=== PATIENT | male | born 1970 | race Caucasian/White ===

== ENCOUNTER 2021-07-11 07:21 | Outpatient (CLI) | payer OTHER, SELFPAY ==
--- NOTE | ~2021-07-11 | DEXA_ITS ---
Bone Density Report Name: PHILLIP HERNANDEZ Age: 51 Sex: Male Ethnicity: White Date of : 1970 Indication: height loss; prior fracture; Referring Provider: NIKKO KIM Study: Bone densitometry was performed. Exam Date: July 11, 2021 Accession number: [id number] Bone Density: Region BMD T-score Z-score Classification AP Spine (L2, L3, L4) 0.936 -1.6 -1.2 Osteopenia Femoral Neck (Left) 0.660 -2.0 -1.2 Osteopenia Total Hip (Left) 0.849 -1.2 -0.9 Osteopenia Total Hip Bilateral Avg 0.838 -1.3 -0.9 Osteopenia Femoral Neck (Right) 0.700 -1.7 -0.9 Osteopenia Total Hip (Right) 0.826 -1.4 -1.0 Osteopenia World Health Organization criteria for BMD impression classify patients as: Normal (T-score at or above -1.0), Osteopenia (T-score between -1.0 and -2.5), or Osteoporosis (T-score at or below -2.5). 10-year Fracture Risk(1): Major Osteoporotic Fracture 9.5% Hip Fracture 1.7% Reported Risk Factors: [place] (), Neck BMD=0.660, BMI=31.0, previous fracture (1) FRAX(R) Version 3.08. Fracture probability calculated for an untreated patient. Fracture probability may be lower if the patient has received treatment. Clinical Information Provided by Patient: Has had a low trauma fracture Patient maximum height was 71 No regular weight bearing exercise Does not regularly consume dairy products Drinks caffeinated beverages Impression: The patient has low bone mass, based on the Left Femoral Neck T-score. The patient has an estimated ten-year risk of hip fracture of 1.7% and an estimated ten-year risk of major fracture of 9.5%, based on the WHO FRAX algorithm. The patient has risk factors, including: previous fracture. Discussion: BONE DENSITY IS LOW AT ONE OR MORE SKELETAL SITES. This patient's lowest T-score is low at one or more skeletal sites. It meets the World Health Organization's (WHO) criteria for ?low bone mass? (T-score between -1.0 and -2.5). The patient's 10-year risk of fracture as calculated by FRAX is less than the threshold where pharmacological therapy is recommended by the National Osteoporosis Foundation (NOF). However, all treatment decisions require clinical judgment and consideration of individual patient factors, including patient preferences, comorbidities, previous drug use, risk factors not captured in the FRAX model (e.g., frailty, falls, vitamin D deficiency, increased bone turnover, interval significant decline in bone density) and possible under or overestimation of fracture risk by FRAX. The patient should follow a healthful lifestyle (good nutrition with adequate calcium and vitamin D, and appropriate weight-bearing exercise). Follow-Up: Consider repeating this study in 2 to 3 years to reassess this patient's status, or sooner if there is some new clinical indication.
== END 2021-07-11 07:22 | disposition home or self-care (01) ==
LOC: ANHIMG 07:25
PROVIDERS: PCP Family Medicine; Visit Provider Family Medicine
DX: M85.88 Other specified disorders of bone density and structure, other site (principal); M85.852 Other specified disorders of bone density and structure, left thigh; M85.851 Other specified disorders of bone density and structure, right thigh
CPT/HCPCS: 77080

== ENCOUNTER → 2022-10-11 13:02 | Outpatient (CLI) | payer OTHER, SELFPAY ==
--- NOTE | ~2022-10-11 | CT_ITS ---
Non-contrast Head CT History: TIA Technique: Axial non-contrast imaging of the brain was performed. Dose reduction technique was used on this scan by utilizing automated exposure control and iterative reconstruction technique. The dose -length product (DLP) was 726.40 mGy-cm. Findings: There is a 1.8 x 1.1 cm acute parenchymal hemorrhage centered in the region of the left ext ernal capsule, with mild surrounding vasogenic edema. No other parenchymal abnormality evident. The v entricles and subarachnoid spaces are normal in size. The calvarium appears normal. The visualized paranasal sinuses and mastoid air cells are clear. Impression: 1.8 x 1.1 cm acute parenchymal hemorrhage centered at the left external capsule. This could reflect h emorrhagic focal infarct versus hypertensive hemorrhage. Underlying mass not definitively excluded. C onsider follow-up pre and postcontrast MR as indicated. Case discussed with Dr. Roa's nurse (Angelique) at the time of this reading. Reviewed, dictated and finalized at location . [facility]ER Impression: 1.8 x 1.1 cm acute parenchymal hemorrhage centered at the left external capsule . This could reflect hemorrhagic focal infarct versus hypertensive hemorrhage. Underlying mass not definitively excluded. Consider follow-up pre and postcontr ast MR as indicated. Case discussed with Dr. Roa's nurse (Angelique) at the time of this reading.
== END ==
PROVIDERS: PCP Family Medicine; Visit Provider Family Medicine
DX: Z86.73 Personal history of transient ischemic attack (TIA), and cerebral infarction without residual deficits (principal); R93.0 Abnormal findings on diagnostic imaging of skull and head, not elsewhere classified
CPT/HCPCS: 70450

== ENCOUNTER 2022-10-11 15:52 | Emergency (ER) | payer OTHER, SELFPAY ==
--- NOTE | ~2022-10-11 | CT_ITS ---
EXAMINATION: CTA BRAIN/CAROTID DATE: 10/11/2022 17:16 INDICATION: Intraparenchymal hemorrhage TECHNIQUE: Computed tomographic angiography (CTA) of the head and neck was performed with 100 mL Omni paque-350 intravenous contrast. Multiplanar reconstructions and maximum intensity projection 3D-recon structions of the carotid arteries and of the intracranial arteries were created by the technologist on a separate workstation. Automated exposure control and iterative reconstruction technique were emp loyed.The dose-length product was 1161.65 mGy-cm. COMPARISON: None. FINDINGS: Carotid arteries: Aortic arch is normal in caliber with no dissection. No significant atherosclerotic plaque at the aor tic arch for along the great vessels arising from the arch. There is 0% stenosis of the right and lef t carotid bulbs relative to normal distal artery lumen diameter (NASCET criteria). Bilateral vertebra l arteries are codominant. There are few <5 mm right thyroid nodules. Cervical soft tissues are other knott unremarkable. Visualized portion of the upper lungs are clear. Mild cervical spondylosis. Intracranial arteries Small amount of nonhemodynamically significant atherosclerotic plaque at the intracranial left verteb ral artery and bilateral carotid siphons. There is no hemodynamically significant stenosis in the timmy tebral, basilar and internal carotid arteries. There are no aneurysms identified. Both A1 and P1 seg ments are patent. There is occlusion of the left middle cerebral artery occurring immediately after t he takeoff of the left A1 segment. There is however contrast opacification of the more distal branche s of the left middle cerebral artery at the sylvian fissure with symmetric cerebral arterial arboriza tion. Again seen is a prominent intraparenchymal hemorrhage at the left external capsule. No evident active contrast extravasation. IMPRESSION: 1. 0% stenosis of the right and left carotid bulbs relative to normal distal artery lumen diameter (N ASCET criteria). 2. 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 2. Intraparenchymal hemorrhage at the left external capsule. Reviewed, dictated and finalized at location A. OR SALES REPRESENTATIVE IMPRESSION: 1. 0% stenosis of the right and left carotid bulbs relative to normal distal ar chetan lumen diameter (NASCET criteria). 2. 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 2. Intraparenchymal hemorrhage at the left external capsule.
[2022-10-11 15:55] VITALS: BP 157/89; PULSE 71; RESP 16; TEMP 36.3; O2SAT 98
--- NOTE | 2022-10-11 16:04 | ECG_ITS ---
Measurements Intervals Avenue Rate: 72 P: 8 MN: 158 QRS: 8 QRSD: 108 T: 32 QT: 401 QTc: 439 Interpretive Statements SINUS RHYTHM NORMAL ECG NO PREVIOUS ECG AVAILABLE FOR COMPARISON Electronically Signed On 10-11-2022 16:51:59 RADIOLOGY SCHEDULER by Delbert Hyatt D.O.
[2022-10-11 16:28] VITALS: BP 142/96; PULSE 72; RESP 18; O2SAT 96
--- NOTE | 2022-10-11 16:28 | ED.RECABL ---
HPI - Recheck/Abnormal Lab/Rx General Chief Complaint: Recheck/Abnormal Lab/Rx Stated Complaint: abnormal ct scan Time Seen by Provider: 10/11/22 16:04 Source: patient Mode of arrival: ambulatory Limitations: no limitations History of Present Illness HPI narrative: This is a 52 year old male that presents to the ER for abnormal outpatient CT scan. Reports about 2 weeks ago he had an episode of right sided facial drop and coordination problems with his hands. This lasted for about 10 minutes and resolved. Reports since he has noted some taste disturbance, otherwise has not had any residual symptoms or deficits. Reports he had an outpatient CT scan of his brain today ordered by his PCP and was told he should go to the ER. Denies vision changes, or current focal numbness or weakness. Related Data Home Medications Medication Instructions Recorded Confirmed rabeprazole 20 mg tablet,delayed 20 mg PO DAILY 09/10/21 09/10/21 release Allergies Allergy/AdvReac Type Severity Reaction Status Date / Time Penicillins Allergy Unknown Hives Verified 09/10/21 13:27 Review of Systems Review of Systems: CONSTITUTIONAL: Denies fever EYES: Denies visual changes GASTROINTESTINAL: Denies vomiting NEUROLOGIC: Denies current headache, numbness, or weakness. All systems reviewed & are unremarkable except as noted in HPI and below PMFSH Past Medical History Medical History (Updated 10/11/22 @ 19:04 by Heaven Ellis PA-C) Ceruminosis Gastric polyp Gastric ulcer Mixed hyperlipidemia Obesity (BMI 30.0-34.9) PUD (peptic ulcer disease) Rectal polyp Family History Family History Mother Diabetes mellitus Family history of mental disorder Depression Family history of cardiovascular disease Family history of arthritis Family history of chronic obstructive pulmonary disease Family history of malignant neoplasm of breast Family history of congestive heart failure Father Depression Family history of cardiovascular disease Acute myocardial infarction Sibling Family history of alcoholism Social History Social History Alcohol intake: current Exam Narrative: GENERAL: Well-appearing, well-nourished, and in no acute distress. HEAD: Normocephalic, atraumatic. EYES: PERRLA and EOMI. ENT: Nares clear, no rhinorrhea or epistaxis. Mucous membranes moist. Oropharynx without tonsillar hypertrophy exudate or other lesions. Bilateral TMs pearly easton non-bulging NECK: Supple. No adenopathy or masses. CHEST: Clear to auscultation. No respiratory distress. No wheezes rales or rhonchi HEART: Regular rate and rhythm. No murmur heard. Normal peripheral pulses. EXTREMITIES: Normal range of motion. No edema. Strength equal in bilateral upper and lower extremities (5/5) SKIN: Warm, dry, no rash. NEURO: No focal deficits. Alert and oriented x3. Cranial nerves II through XII grossly intact. Normal [id number]. Normal gait PSYCH: Normal mood and affect Course Course Emergency Course: I had a lengthy discussion with the patient about his work-up and the plan of care. He agrees. Will reach out for further follow-up outpatient with his primary doctor and the neurologist as directed Consultations Consultation #1: Spoke with Dr. Stafford, neurosurgery at [facility], about patient and work-up. Who believes there is no neurosurgical intervention at this time. Will reach out to the neurologist and call back with a further plan Date: 10/11/22 Consultation #2: Spoke with Dr. Stafford again who has reviewed imaging. Reports she spoke with the neurologist and there is no role in further inpatient management as this is a subacute stroke that likely occurred a week and a half ago when he was having symptoms. They recommend follow-up outpatient and for him to hold his aspirin Date: 10/11/22 Consultation #3: Spoke with patient
[2022-10-11 16:48] LABS: Basophils Percent Auto 0.8 % (0.2-1.2); Eosinophils Absolute Auto 0.1 K/mm3 (0-0.3); Eosinophils Percent Auto 1.6 % (0-4.4); Hematocrit 44.3 % (42.0-52.0); Hemoglobin 14.9 g/dL (14.0-18.0); Immature Granulocyte Absolute 0.03 K/mm3 (0.00-0.031); Immature Granulocyte Percent A 0.6 % (0-0.5); Lymphocytes Absolute Auto 1.37 K/mm3 (0.9-3.2); Lymphocytes Percent Auto 26.6 % (18.3-44.2); Mean Corpuscular HGB Conc 33.6 g/dl (32-36); Mean Corpuscular Hemoglobin 29.2 pg (26-34); Mean Corpuscular Volume 86.7 fl (80-100); Mean Platelet Volume 9.7 fl (7.4-10.4); Monocytes Absolute Auto 0.7 K/mm3 (0.1-0.6); Monocytes Percent Auto 13.6 % (2.6-8.5); Neutrophils Absolute Auto 2.9 K/mm3 (1.3-6.7); Neutrophils Percent Auto 56.8 % (45.5-73.1); Platelet Count Result 193 k/mm3 (150-375); Red Blood Count 5.11 M/mm3 (4.6-6.20); Red Cell Distribution Width 12.4 % (11.5-14.5); White Blood Count 5.2 K/mm3 (4.5-10.0)
[2022-10-11 16:58] LABS: INR 1.1; Prothrombin Time 13.8 Seconds (11.1-14.7)
[2022-10-11 16:59] LABS: Partial Thromboplastin Time 30.3 SECONDS (22.3-36.8)
[2022-10-11 17:00] LABS: Alanine Aminotransferase 21 U/L (6-50); Albumin Level 4.2 g/dL (3.5-5.1); Alkaline Phosphatase 85 U/L (38-126); Anion Gap 4 mmol/L (8-16); Aspartate Amino Transferase 25 U/L (17-59); Bilirubin,Total 1.3 mg/dL (0.2-1.3); Blood Urea Nitrogen 15 mg/dL (9-20); Calcium 8.4 mg/dL (8.4-10.2); Carbon Dioxide 29 mmol/L (22-30); Chloride 101 mmol/L (98-107); Estimated CRCL calculation 98 ml/min; Estimated Glomerular Filt Rate > 60; Glucose 102 mg/dL (65-110); Potassium 3.7 mmol/L (3.4-5.0); Sodium 134 mmol/L (137-145)
[2022-10-11 17:11] LABS: Troponin I < 0.012 ng/mL (0.000-0.034)
[2022-10-11 17:30] VITALS: BP 136/86; PULSE 70; RESP 20; O2SAT 98
[2022-10-11 19:55] VITALS: BP 139/98; PULSE 70; RESP 18; O2SAT 99
== END 2022-10-11 19:56 | disposition home or self-care (01) ==
PROVIDERS: Emergency Provider Physician Assistant; PCP Family Medicine
DX: I61.9 Nontraumatic intracerebral hemorrhage, unspecified (principal); E78.5 Hyperlipidemia, unspecified
CPT/HCPCS: 36415; 70496; 70498; 80053; 84484; 85025; 85610; 85730; 93005; 99284; Q9967

== ENCOUNTER → 2022-11-06 08:19 | Outpatient (CLI) | payer OTHER, SELFPAY ==
--- NOTE | ~2022-11-06 | MR_ITS ---
EXAMINATION: MR brain/brain stem wo con DATE: 11/06/2022 09:03 INDICATION: Transient ischemic attack. TECHNIQUE: Magnetic resonance imaging (MRI) of the brain and brainstem was performed without intraven ous contrast. COMPARISON: Head CT 10/11/2022 FINDINGS: There is a 3.1 x 0.9 x 2.1 cm chronic hematoma in the left subinsular white matter. There i s increased T2-weighted signal intensity in the left parietal lobe deep white matter, consistent with old infarct. There is no acute ischemic infarct or abnormal mass lesion. The ventricles are normal i n size. The orbits are normal. There is mild mucosal thickening in the ethmoid sinuses. The mastoid a ir cells are normal. IMPRESSION: 1. 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 2. 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 Reviewed, dictated and finalized at location A.
== END ==
PROVIDERS: PCP Family Medicine
DX: I61.9 Nontraumatic intracerebral hemorrhage, unspecified (principal); I66.02 Occlusion and stenosis of left middle cerebral artery; R93.0 Abnormal findings on diagnostic imaging of skull and head, not elsewhere classified
CPT/HCPCS: 70551